=== PATIENT | male | born 1950 | race Two or more races ===

== ENCOUNTER 2017-02-25 07:56 | Inpatient (IN) | payer OTHER ==
[~2017-02-25] VITALS: Ht 165.1 cm; Wt 67.6 kg
[~2017-02-25 07:56] MED LIST: ADVIL200 MG PO; AUGMENTIN875 MG PO; CARBATROL-ER200 MG PO; CYMBALTA60 MG PO; Cymbalta PO; DIOVAN HCT 11 TABLET PO; Flexeril PO; HYDROCODON-ACE1 EAC7 PO; LEVETIRACETAM500 MG PO; LIPITOR40 MG PO; OMEPRAZOLE40 M1 PO; PERCOCET 5/31 TABLET PO; TEGRETOL-XR,CA200 MG PO; TEGretol-XR,Carbatro PO; TYLENOL REGULA325 MG PO; VALSARTAN160 MG PO; Vicodin,Norco 5/325 PO; Zestoretic,Prinzide PO; [UNRECOGNIZED DRUG - CODE] PO
[2017-02-25 09:11] LABS: EOSINOPHIL (%) 0.1 % (0-5); HEMATOCRIT 40.1 % (38.0-50.0); IMMATURE GRANULOCYTE (%) 0.5 % (0.0-0.7); IMMATURE GRANULOCYTE COUNT 0.1 K/uL; INSTRUMENT ABS NEUTROPHIL CT 13.3 K/uL; LYMPHOCYTE COUNT 0.5 K/uL (1.0-2.8); MCH 31.7 PG (29.0-34.0); MCHC 33.9 G/DL (30.0-36.0); MCV 93.5 FL (86-99); MEAN PLAT.VOLUME 10.5 uM^3 (9.0-12.4); MONOCYTE (%) 7.4 % (3-12); MONOCYTE COUNT 1.1 K/uL (0-0.8); NEUTROPHIL (%) 88.9 % (45-76); NEUTROPHIL COUNT 13.3 K/uL (1.8-6.4); PLATELET COUNT 195 K/uL (156-360); RBC DIS.WIDTH-CV 12.5 % (11.8-14.6); RBC DIS.WIDTH-SD 43.2 % (39-53); RED BLOOD COUNT 4.29 M/uL (4.00-5.50)
[2017-02-25 09:33] LABS: CHLORIDE 104 mEq/L (99-109); POTASSIUM 4.4 mEq/L (3.7-5.4); SODIUM 139 mEq/L (136-147)
[2017-02-25 09:35] LABS: GLUCOSE 136 mg/dL (70-99)
[2017-02-25 09:36] LABS: ANION GAP 18 MEQ/L (2-14)
[2017-02-25 09:37] LABS: TOTAL BILIRUBIN 0.4 mg/dL (0.0-1.0)
[2017-02-25 09:38] LABS: SERUM ETHYL ALCOHOL < 10 mg/dL
[2017-02-25 09:39] LABS: ALKALINE PHOSPHATASE 64 IU/L (3-129); GFR ESTIMATE (CALCULATED) 50 mL/min/
[2017-02-25 09:40] LABS: DIRECT BILIRUBIN 0.2 mg/dL (0.0-0.3); UREA NITROGEN (BUN) 26 mg/dL (9-23)
[2017-02-25 11:08] LABS: ADD MIUA? YES; BILIRUBIN NEGATIVE; BLOOD LARGE; COLOR YELLOW ((YELLOW)); GLUCOSE (STRIP) NEGATIVE; KETONES 80; LEUKOCYTES NEGATIVE; NITRITE NEGATIVE; PROTEIN (STRIP) 100; SPECIFIC GRAVITY 1.016 (1.000-1.030); UROBILINOGEN 0.2 MG/DL (0.2-1.0)
[2017-02-25 11:13] LABS: BACTERIA RARE /HPF; EPITHELIAL CELLS RARE /HPF; MUCUS TRACE /LPF; RED BLOOD CELLS 0-5 /HPF (0-5); WHITE BLOOD CELLS 0-5 /HPF (0-5)
[2017-02-25 11:22] LABS: AMPHETAMINE NEGATIVE (500 ng/mL); BARBITURATES NEGATIVE (200 ng/mL); BENZODIAZEPINES NEGATIVE (150 ng/mL); COCAINE NEGATIVE (150 ng/mL); INTERNAL CONTROLS VALID? YES; METHADONE NEGATIVE (200 ng/mL); METHAMPHETAMINE NEGATIVE (500 ng/mL); OPIATES (MORPHINE) NEGATIVE (100 ng/mL); OXYCODONE NEGATIVE (100 ng/mL); PHENCYCLIDINE NEGATIVE (25 ng/mL); PROPOXYPHENE NEGATIVE (300 ng/mL); THC CANNABINOIDS NEGATIVE (50 ng/mL); TRICYCLIC ANTIDEPRESSANTS NEGATIVE (300 ng/mL)
[2017-02-25 14:09] VITALS: BP 143/74
[2017-02-25 20:24] VITALS: BP 150/78
[2017-02-26 03:40] VITALS: BP 142/77
[2017-02-26 06:36] LABS: ALKALINE PHOSPHATASE 52 IU/L (3-129); ANION GAP 10 MEQ/L (2-14); CHLORIDE 106 MEQ/L (99-109); GFR ESTIMATE (CALCULATED) > 59 mL/min/; POTASSIUM 4.5 MEQ/L (3.7-5.4); SAMPLE HEMOLYSIS CHECK 0; SAMPLE ICTERIC CHECK 0; SAMPLE LIPEMIA CHECK 0; SODIUM 140 MEQ/L (136-147); TOTAL BILIRUBIN 0.6 MG/DL (0.0-1.0); UREA NITROGEN (BUN) 27 mg/dL (9-23)
[2017-02-26 06:38] LABS: GLUCOSE 96 mg/dL (70-99)
[2017-02-26 07:55] VITALS: BP 147/83
[2017-02-26 11:50] VITALS: BP 164/104
[2017-02-26 16:09] VITALS: BP 161/99
[2017-02-26 23:32] VITALS: BP 151/103
[2017-02-27 07:38] LABS: HEMATOCRIT 37.3 % (38.0-50.0); MCH 32.7 PG (29.0-34.0); MCHC 34.6 G/DL (30.0-36.0); MCV 94.7 FL (86-99); RBC DIS.WIDTH-CV 12.2 % (11.8-14.6); RBC DIS.WIDTH-SD 42.9 % (39-53); RED BLOOD COUNT 3.94 M/uL (4.00-5.50); WHITE BLOOD COUNT 7.8 K/uL (4.1-10.2)
[2017-02-27 07:55] LABS: PLAT.SUFFICIENCY DECREASED
[2017-02-27 07:56] VITALS: BP 136/82
[2017-02-27 08:52] LABS: PLATELET COUNT 133 K/uL (156-360)
[2017-02-27 10:14] LABS: CHLORIDE 100 mEq/L (99-109); POTASSIUM 4.1 mEq/L (3.7-5.4); SODIUM 135 mEq/L (136-147)
[2017-02-27 10:17] LABS: ANION GAP 10 MEQ/L (2-14)
[2017-02-27 10:20] LABS: GFR ESTIMATE (CALCULATED) > 59 mL/min/
[2017-02-27 10:21] LABS: UREA NITROGEN (BUN) 16 mg/dL (9-23)
[2017-02-27 10:24] LABS: GLUCOSE 145 mg/dL (70-99)
[2017-02-27] MEDS ORDERED: LEVETIRACETAM750 MG PO (11:07)
[2017-02-27 11:09] LABS: CREATINE KINASE 24590 IU/L (1-294)
== END 2017-02-27 13:02 | disposition home health service (06) | DRG 101 ==
LOC: EME → EDBD 07:56 → 5SOUTH 11:38 → EDOF 11:38 → 5SOUTH 13:56
PROVIDERS: Emergency Medicine; Family Medicine; Hospitalist; Internal Medicine
DX: G40.909 Epilepsy, unspecified, not intractable, without status epilepticus (principal); N17.9 Acute kidney failure, unspecified; I10 Essential (primary) hypertension; Z86.711 Personal history of pulmonary embolism; Z91.19 Patient's noncompliance with other medical treatment and regimen; E87.1 Hypo-osmolality and hyponatremia; Z87.820 Personal history of traumatic brain injury
CPT/HCPCS: 70450; 71010; 73610; 80048; 80053; 80076; 81003; 82550; 85025; 85027; 97530 GP; 99281; 99285; G0480; J1650; J1953; J2060; J2405; J7030; J7050

== ENCOUNTER 2017-08-08 07:40 | Emergency (ER) | payer OTHER ==
[~2017-08-08] VITALS: Ht 162.6 cm; Wt 70.4 kg
[~2017-08-08 07:40] MED LIST changes: +LEVETIRACETAM750 MG PO
[2017-08-08 09:20] LABS: EOSINOPHIL (%) 4.6 % (0-5); EOSINOPHIL COUNT 0.3 K/uL (0-0.3); HEMATOCRIT 39.6 % (38.0-50.0); IMMATURE GRANULOCYTE (%) 0.2 % (0.0-0.7); INSTRUMENT ABS NEUTROPHIL CT 3.6 K/uL; LYMPHOCYTE COUNT 0.9 K/uL (1.0-2.8); MCH 32.3 PG (29.0-34.0); MCHC 34.3 G/DL (30.0-36.0); MCV 94.1 FL (86-99); MONOCYTE (%) 11.9 % (3-12); MONOCYTE COUNT 0.7 K/uL (0-0.8); NEUTROPHIL (%) 66.4 % (45-76); NEUTROPHIL COUNT 3.6 K/uL (1.8-6.4); PLATELET COUNT 159 K/uL (156-360); RBC DIS.WIDTH-CV 12.5 % (11.8-14.6); RBC DIS.WIDTH-SD 43.2 % (39-53); RED BLOOD COUNT 4.21 M/uL (4.00-5.50); WHITE BLOOD COUNT 5.5 K/uL (4.1-10.2)
[2017-08-08 09:35] LABS: CHLORIDE 106 mEq/L (99-109); POTASSIUM 3.8 mEq/L (3.7-5.4); SODIUM 140 mEq/L (136-147)
[2017-08-08 09:37] LABS: GLUCOSE 111 mg/dL (70-99)
[2017-08-08 09:38] LABS: ANION GAP 10 MEQ/L (2-14)
[2017-08-08 09:41] LABS: GFR ESTIMATE (CALCULATED) > 59 mL/min/; TROP-I INTERPRETATION NEGATIVE; TROPONIN-I 0.02 ng/mL (0.0-0.30)
[2017-08-08 09:42] LABS: UREA NITROGEN (BUN) 12 mg/dL (9-23)
[2017-08-08] MEDS ORDERED: ANTIVERT25 MG PO (10:52)
[2017-08-08 11:17] VITALS: BP 117/78
== END 2017-08-08 11:18 | disposition home or self-care (01) ==
LOC: EME 07:40
PROVIDERS: Emergency Medicine
DX: R42 Dizziness and giddiness (principal); I10 Essential (primary) hypertension; E78.5 Hyperlipidemia, unspecified; R56.9 Unspecified convulsions
CPT/HCPCS: 70450; 71010; 80048; 84484; 85025; 93005; 99281; 99285

== ENCOUNTER 2017-08-09 12:38 | Emergency (ER) | payer OTHER ==
[~2017-08-09] VITALS: Ht 165.1 cm; Wt 74.1 kg
[~2017-08-09 12:38] MED LIST changes: +ANTIVERT25 MG PO
[2017-08-09 13:26] LABS: EOSINOPHIL (%) 1.6 % (0-5); EOSINOPHIL COUNT 0.1 K/uL (0-0.3); HEMATOCRIT 40.6 % (38.0-50.0); IMMATURE GRANULOCYTE (%) 0.1 % (0.0-0.7); INSTRUMENT ABS NEUTROPHIL CT 4.8 K/uL; MCHC 34.5 G/DL (30.0-36.0); MCV 92.7 FL (86-99); MEAN PLAT.VOLUME 10.2 uM^3 (9.0-12.4); MONOCYTE (%) 11.5 % (3-12); MONOCYTE COUNT 0.8 K/uL (0-0.8); NEUTROPHIL (%) 71.3 % (45-76); NEUTROPHIL COUNT 4.8 K/uL (1.8-6.4); PLATELET COUNT 171 K/uL (156-360); RBC DIS.WIDTH-CV 12.4 % (11.8-14.6); RBC DIS.WIDTH-SD 42.5 % (39-53); RED BLOOD COUNT 4.38 M/uL (4.00-5.50); WHITE BLOOD COUNT 6.7 K/uL (4.1-10.2)
[2017-08-09 13:37] LABS: CHLORIDE 106 mEq/L (99-109); POTASSIUM 4.3 mEq/L (3.7-5.4); SODIUM 139 mEq/L (136-147)
[2017-08-09 13:38] LABS: MAGNESIUM 2.3 mg/dL (1.3-2.7)
[2017-08-09 13:39] LABS: GLUCOSE 120 mg/dL (70-99)
[2017-08-09 13:40] LABS: ANION GAP 8 MEQ/L (2-14)
[2017-08-09 13:41] LABS: TOTAL BILIRUBIN 0.6 mg/dL (0.0-1.0)
[2017-08-09 13:43] LABS: ALKALINE PHOSPHATASE 64 IU/L (3-129); GFR ESTIMATE (CALCULATED) > 59 mL/min/
[2017-08-09 13:44] LABS: UREA NITROGEN (BUN) 16 mg/dL (9-23)
[2017-08-09 13:47] LABS: TROP-I INTERPRETATION NEGATIVE; TROPONIN-I < 0.01 ng/mL (0.0-0.30)
[2017-08-09 16:37] VITALS: BP 146/104
== END 2017-08-09 16:37 | disposition home or self-care (01) ==
LOC: EME 12:38
PROVIDERS: Emergency Medicine
DX: E86.0 Dehydration (principal); R55 Syncope and collapse; I10 Essential (primary) hypertension; E78.5 Hyperlipidemia, unspecified; Z87.820 Personal history of traumatic brain injury; Z98.1 Arthrodesis status
CPT/HCPCS: 80053; 81003; 83735; 84484; 85025; 93005; 99281; 99285; J7030

== ENCOUNTER 2018-04-08 09:44 | Emergency (ER) | payer OTHER ==
[~2018-04-08] VITALS: Ht 165.1 cm; Wt 70.5 kg
[2018-04-08 10:42] LABS: MCH 33.6 PG (29.0-34.0); MCHC 35.7 G/DL (30.0-36.0); PLATELET COUNT 178 K/uL (156-360); RBC DIS.WIDTH-CV 12.4 % (11.8-14.6); RBC DIS.WIDTH-SD 43.2 % (39-53); RED BLOOD COUNT 4.47 M/uL (4.00-5.50)
[2018-04-08 10:53] LABS: ALBUMIN 4.5 g/dL (3.2-4.8); CHLORIDE 105 mEq/L (99-109); POTASSIUM 4.8 mEq/L (3.7-5.4); SODIUM 142 mEq/L (136-147)
[2018-04-08 10:56] LABS: GLUCOSE 99 mg/dL (70-99); TOTAL PROTEIN 7.2 g/dL (6.4-8.3)
[2018-04-08 10:58] LABS: TOTAL BILIRUBIN 0.6 mg/dL (0.0-1.0)
[2018-04-08 10:59] LABS: ALKALINE PHOSPHATASE 74 IU/L (3-129); SERUM ETHYL ALCOHOL < 10 mg/dL
[2018-04-08 11:00] LABS: CREATININE 1.2 mg/dL (0.6-1.3); GFR ESTIMATE (CALCULATED) > 59 mL/min/ (58.99-99999)
[2018-04-08 11:01] LABS: AST (GOT) 64 IU/L (2-34); UREA NITROGEN (BUN) 18 mg/dL (9-23)
[2018-04-08 11:03] LABS: ALT (GPT) 50 IU/L (3-49)
[2018-04-08 11:09] LABS: AMPHETAMINE NEGATIVE (500 ng/mL); BARBITURATES NEGATIVE (200 ng/mL); BENZODIAZEPINES NEGATIVE (150 ng/mL); BUPRENORPHINE NEGATIVE (10 ng/mL); COCAINE NEGATIVE (150 ng/mL); METHADONE NEGATIVE (200 ng/mL); METHAMPHETAMINE NEGATIVE (500 ng/mL); OPIATES (MORPHINE) NEGATIVE (100 ng/mL); OXYCODONE NEGATIVE (100 ng/mL); PHENCYCLIDINE NEGATIVE (25 ng/mL); PROPOXYPHENE NEGATIVE (300 ng/mL); THC CANNABINOIDS NEGATIVE (50 ng/mL); TRICYCLIC ANTIDEPRESSANTS NEGATIVE (300 ng/mL)
[2018-04-08 13:05] VITALS: BP 149/88
== END 2018-04-08 13:15 | disposition home or self-care (01) ==
LOC: EME 09:44
PROVIDERS: Emergency Medicine
DX: F10.10 Alcohol abuse, uncomplicated (principal); F33.1 Major depressive disorder, recurrent, moderate; I10 Essential (primary) hypertension; E78.5 Hyperlipidemia, unspecified
CPT/HCPCS: 80053; 85027; 90839; 99281; 99285; G0480